=== PATIENT | male | born 1985 | race African-American/Black ===

== ENCOUNTER 2021-03-28 13:09 | Emergency (ER) | payer OTHER ==
[~2021-03-28] VITALS: Ht 180.3 cm; Wt 136.1 kg
[2021-03-28] MEDS ORDERED: KETOROLAC 30MG/ML VIAL IV STA (14:08)
[2021-03-28] MEDS ORDERED: CLINDAMYCIN HCL 150MG CAPSULE PO ONE (14:15)
[2021-03-28] MEDS ORDERED: PREDNISONE 20MG TABLET PO ONE (14:15)
[2021-03-28] MEDS ORDERED: SODIUM CHLORIDE 0.9% 1,000 ML IV ONE (14:15)
[2021-03-28 14:19] VITALS: BP 166/94
[2021-03-28] MEDS ORDERED: LIDOCAINE HCL/PF 1% 10 MG/ML 5ML VIAL INFIL ONE (15:30)
[2021-03-28] MEDS ORDERED: IBUP-2030 MT (15:45)
[2021-03-28] MEDS ORDERED: CLIN300C12 MT (15:45)
== END 2021-03-28 16:00 | disposition home or self-care (01) ==
LOC: ER 13:30
DX: J36 Peritonsillar abscess (principal); E11.9 Type 2 diabetes mellitus without complications
CPT/HCPCS: 96361; 96374; 99283; J1885; J3490; J7030; J7512; Z7610

== ENCOUNTER 2022-08-09 12:52 | Inpatient (IN) | payer OTHER ==
[~2022-08-09] VITALS: Ht 175.3 cm; Wt 136.1 kg
[~2022-08-09 12:52] MED LIST: CLIN-194 MT; IBUP-2030 MT
[2022-08-09 18:25] LABS: CHLORIDE 103 mEq/L (98-107)
[2022-08-09 18:26] LABS: BASOPHILS % 0.7 % (0.0-2.0); EOSINOPHILS % 0.9 % (0.0-5.0); HEMATOCRIT. 49.2 % (42.0-52.0); HEMOGLOBIN. 16.9 g/dL (14.0-18.0); LYMPHOCYTES % 30.9 % (20.0-50.0); MEAN CORPUSCULAR HEMOGLOBIN 31.4 pg (28.0-32.0); MEAN CORPUSCULAR VOLUME 91.4 fL (80.0-94.0); MEAN PLATELET VOLUME 7.6 fl (7.4-10.4); MONOCYTES % 11.6 % (2.0-8.0); NEUTROPHILS % 55.9 % (40.0-76.0); PLATELET 309 x1000/uL (130-400); RED BLOOD CELL COUNT 5.38 mill/uL (4.7-6.1); RED CELL DISTRIBUTION WIDTH 13.1 % (11.6-14.6)
[2022-08-09] MEDS ORDERED: ACETAMINOPHEN 325MG TABLET PO ONE (19:30)
[2022-08-09] MEDS ORDERED: ONDANSETRON HCL 4MG TABLET PO ONE (19:30)
[2022-08-09] MEDS ORDERED: ASPIRIN 325MG EC TABLET PO ONE (19:30)
[2022-08-09] MEDS ORDERED: MORPHINE SULFATE 4 MG/ML CPJ (NOT FOR IM USE) IV ONE (21:00)
[2022-08-09] MEDS ORDERED: ENOXAPARIN 150MG/ML SYR SUBCUT ONE (21:30)
[2022-08-09] MEDS ORDERED: IOHEXOL-350 100 ML BOTTLE ONE (23:12)
[2022-08-09] MEDS ORDERED: ENOXAPARIN 150MG/ML SYR SUBCUT NR (23:15)
[2022-08-09] MEDS ORDERED: CEFTRIAXONE 1 G PREMIX 50 ML IV ONE (23:45)
[2022-08-09] MEDS ORDERED: AZITHROMYCIN 500MG/250ML 250 ML IV ONE (23:45)
[2022-08-10 09:54] VITALS: BP 139/86
[2022-08-10 10:00] VITALS: BP 130/86
[2022-08-10] MEDS ORDERED: DEXTROSE 50% WATER 50ML SYRINGE IV PRN (10:45)
[2022-08-10] MEDS ORDERED: IPRATROPIUM/ALBUTEROL 0.5-3(2.5)MG/3ML NEB HHN PRN (10:45)
[2022-08-10] MEDS ORDERED: GUAIFENESIN-DM 200MG-20MG/10ML UDC PO PRN (10:45)
[2022-08-10] MEDS ORDERED: ALBUTEROL (0.083%) 2.5MG/3ML NEB HHN PRN (10:45)
[2022-08-10] MEDS ORDERED: IPRATROPIUM BROMIDE (0.02%) 0.5MG/2.5ML NEB HHN PRN (10:45)
[2022-08-10] MEDS ORDERED: ACETAMINOPHEN 325MG TABLET PO PRN (10:45)
[2022-08-10] MEDS ORDERED: ONDANSETRON HCL 4MG/2ML INJ IV PRN (10:45)
[2022-08-10] MEDS ORDERED: BLOOD SUGAR DIAGNOSTIC STRIP TEST SCH (11:40)
[2022-08-10] MEDS ORDERED: INSULIN LISPRO 100 UNITS/ML SUBCUT SCH (12:10)
[2022-08-10] MEDS ORDERED: LEVO750T68 MT (13:43)
[2022-08-10 14:02] VITALS: BP 121/70
[2022-08-10 18:14] LABS: *AMPHETAMINES SCREEN URINE NEGATIVE (NEGATIVE); *BARBITURATES SCREEN URINE NEGATIVE (NEGATIVE); *BENZODIAZEPINES SCREEN URINE NEGATIVE (NEGATIVE); *COCAINE SCREEN URINE NEGATIVE (NEGATIVE); CANNABINOID URINE SCREEN PRESUMTIVE POSITIVE (NEGATIVE); METHADONE URINE SCREEN NEGATIVE (NEGATIVE); OPIATES URINE SCREEN PRESUMTIVE POSITIVE (NEGATIVE); PHENCYCLIDINE URINE SCREEN NEGATIVE (NEGATIVE)
[2022-08-10] MEDS ORDERED: CEFTRIAXONE 1,000 MG in DEXTROSE 5% WATER 50 ML IV SCH (22:00)
[2022-08-11] MEDS ORDERED: AZITHROMYCIN 250 MG TABLET PO SCH (09:00)
== END 2022-08-10 16:20 | disposition home or self-care (01) | DRG 190 ==
LOC: ER 12:52 → 7EST 23:15
PROVIDERS: ADMIT Internal Medicine; ATTEND Internal Medicine
DX: I24.8 Other forms of acute ischemic heart disease (principal); I21.A1 Myocardial infarction type 2; J18.9 Pneumonia, unspecified organism; E11.9 Type 2 diabetes mellitus without complications; I10 Essential (primary) hypertension; Z20.822 Contact with and (suspected) exposure to COVID-19; E66.01 Morbid (severe) obesity due to excess calories; Z68.41 Body mass index [BMI] 40.0-44.9, adult; Z79.4 Long term (current) use of insulin
CPT/HCPCS: 36415; 71045; 71275; 74174; 80053; 80305; 82962; 84484; 85025; 87426; 93005; 99285; J0456; J0696; J1650; J1815; J2270; J7060; Q0162; Q9967

== ENCOUNTER 2023-06-14 13:33 | Inpatient (IN) | payer OTHER ==
[~2023-06-14] VITALS: Ht 175.3 cm; Wt 146.1 kg
[~2023-06-14 13:33] MED LIST changes: -CLIN-194 MT; +LEVO750T68 MT
[2023-06-14 17:08] LABS: BASOPHILS % 0.4 % (0.0-2.0); EOSINOPHILS % 0.3 % (0.0-5.0); HEMATOCRIT. 48.3 % (42.0-52.0); HEMOGLOBIN. 15.9 g/dL (14.0-18.0); LYMPHOCYTES % 14.1 % (20.0-50.0); MEAN CORPUSCULAR HEMOGLOBIN 30.5 pg (28.0-32.0); MEAN CORPUSCULAR HGB CONC 32.9 g/dL (31.0-37.0); MEAN CORPUSCULAR VOLUME 92.9 fL (80.0-94.0); MEAN PLATELET VOLUME 7.8 fl (7.4-10.4); MONOCYTES % 7.8 % (2.0-8.0); NEUTROPHILS % 77.4 % (40.0-76.0); PLATELET 287 x1000/uL (130-400); WHITE BLOOD COUNT 19.6 x1000/uL (4.5-11.0)
[2023-06-14 17:26] LABS: ALANINE AMINOTRANSFERASE 23 IU/L (10-49); ASPARTATE AMINOTRANSFERASE 12 IU/L (<34); BILIRUBIN TOTAL 1.7 mg/dL (0.1-1.0); CALCIUM 10.6 mg/dL (8.7-10.4); CARBON DIOXIDE 29 mEq/L (21-32); CHLORIDE 103 mEq/L (98-107); CREATININE 1.1 mg/dL (0.6-1.3); GLUCOSE 88 mg/dL (70-105); POTASSIUM 4.1 mEq/L (3.5-5.1); PROTEIN TOTAL 8.8 g/dL (6.0-8.3); SODIUM 140 mEq/L (136-145); UREA NITROGEN BLOOD 10 mg/dL (9-23)
[2023-06-14 17:36] LABS: TROPONIN I HIGH SENSITIVITY 102 ng/L (3.0-53)
[2023-06-14 20:23] LABS: CLARITY URINE CLOUDY (CLEAR); COLOR URINE YELLOW (YELLOW); PROTEIN URINE 2+ (NEGATIVE); SPECIFIC GRAVITY URINE >=1.030 (1.005-1.030)
[2023-06-14 20:24] LABS: GLUCOSE URINE NEGATIVE (NEGATIVE); KETONES URINE TRACE (NEGATIVE); LEUKOCYTE ESTERASE URINE TRACE (NEGATIVE); NITRITE URINE NEGATIVE (NEGATIVE); OCCULT BLOOD URINE 1+ (NEGATIVE); UROBILINOGEN URINE 0.2 E.U./dL (0.2-1.0)
[2023-06-14 20:30] LABS: BACTERIA URINE 2+; SQUAMOUS EPITHELIAL CELL URINE 2+ /lpf (RARE/1+)
[2023-06-14 20:31] LABS: WBC URINE 15-25 /hpf (0-2)
[2023-06-14] MEDS ORDERED: ONDANSETRON HCL 4MG/2ML INJ IV ONE (21:15)
[2023-06-14] MEDS ORDERED: LACTATED RINGERS IV SCH (21:15)
[2023-06-14] MEDS ORDERED: CEFTRIAXONE 1GM PREMIX 50 ML IV ONE (21:15)
[2023-06-14 21:27] LABS: TROPONIN I HIGH SENSITIVITY 100 ng/L (3.0-53)
[2023-06-14] MEDS ORDERED: ONDANSETRON HCL 4MG/2ML INJ IV SCH (21:30)
[2023-06-14] MEDS ORDERED: CEFTRIAXONE 1GM PREMIX 50 ML IV NR (23:45)
[2023-06-14] MEDS ORDERED: ONDANSETRON HCL 4MG/2ML INJ IV NR (23:45)
[2023-06-14 23:50] VITALS: BP_SYST 144; BP_DIAS 78; BP_DIAS 79; PULSE 86; RESP 19; TEMP 97.8
[2023-06-15] MEDS ORDERED: ONDANSETRON HCL 4MG/2ML INJ IV PRN (01:15)
[2023-06-15] MEDS ORDERED: ACETAMINOPHEN 325MG TABLET PO PRN (01:15)
[2023-06-15] MEDS ORDERED: DEXTROSE 50% WATER 50ML SYRINGE IV PRN (01:15)
[2023-06-15 04:00] VITALS: BP 172/103; PULSE 86; RESP 19; TEMP 96.6
[2023-06-15] MEDS: CLONIDINE 0.1MG TABLET PO PRN ×2 (05:35→11:40)
[2023-06-15] MEDS: BLOOD SUGAR DIAGNOSTIC STRIP TEST SCH ×4 (07:40→21:18)
[2023-06-15 08:00] VITALS: BP 170/100; PULSE 80; RESP 18; TEMP 96.5
[2023-06-15] MEDS: INSULIN LISPRO 100 UNITS/ML SUBCUT SCH ×4 (08:10→21:23)
[2023-06-15] MEDS: AMLODIPINE 10MG TABLET PO SCH (08:13)
[2023-06-15] MEDS: HYDROCODONE/ACETAMINOPHEN 5/325MG TABLET PO PRN ×2 (11:05→17:13)
[2023-06-15 12:00] VITALS: BP 161/92; PULSE 73; RESP 18; TEMP 97.4
[2023-06-15] MEDS ORDERED: CEFTRIAXONE 1GM PREMIX 50 ML IV SCH (14:30)
[2023-06-15] MEDS ORDERED: HYDRALAZINE HCL 50MG TABLET PO NR (15:00)
[2023-06-15 16:00] VITALS: BP 121/67; PULSE 92; RESP 19; TEMP 96.6
[2023-06-15] MEDS: TAMSULOSIN HCL 0.4MG SR CAPSULE PO SCH (17:03)
[2023-06-15 20:00] VITALS: BP 122/63; PULSE 102; RESP 18; TEMP 97.8
[2023-06-15] MEDS ORDERED: CEFTRIAXONE 1,000 MG in DEXTROSE 5% WATER 50 ML IV SCH (21:00)
[2023-06-15] MEDS: HYDRALAZINE HCL 50MG TABLET PO SCH (21:17)
[2023-06-16] VITALS: BP 122/63; PULSE 102; RESP 18; TEMP 97.8
[2023-06-16 00:14] LABS: BASOPHILS % 0.2 % (0.0-2.0); EOSINOPHILS % 0.5 % (0.0-5.0); HEMATOCRIT. 43.7 % (42.0-52.0); HEMOGLOBIN. 14.5 g/dL (14.0-18.0); LYMPHOCYTES % 20.9 % (20.0-50.0); MEAN CORPUSCULAR HEMOGLOBIN 30.3 pg (28.0-32.0); MEAN CORPUSCULAR VOLUME 91.9 fL (80.0-94.0); MEAN PLATELET VOLUME 7.8 fl (7.4-10.4); MONOCYTES % 12.2 % (2.0-8.0); NEUTROPHILS % 66.2 % (40.0-76.0); PLATELET 290 x1000/uL (130-400); RED BLOOD CELL COUNT 4.76 mill/uL (4.7-6.1); RED CELL DISTRIBUTION WIDTH 13.7 % (11.6-14.6); WHITE BLOOD COUNT 13.2 x1000/uL (4.5-11.0)
[2023-06-16 00:28] LABS: CALCIUM 9.5 mg/dL (8.7-10.4); CARBON DIOXIDE 31 mEq/L (21-32); CHLORIDE 98 mEq/L (98-107); CREATININE 0.9 mg/dL (0.6-1.3); GLUCOSE 144 mg/dL (70-105); POTASSIUM 3.3 mEq/L (3.5-5.1); SODIUM 137 mEq/L (136-145); UREA NITROGEN BLOOD 10 mg/dL (9-23)
[2023-06-16 04:00] VITALS: BP_SYST 130; BP_SYST 133; BP_DIAS 74; BP_DIAS 75; PULSE 103; PULSE 98; RESP 17; RESP 18; TEMP 96.9; TEMP 97.3
[2023-06-16] MEDS: BLOOD SUGAR DIAGNOSTIC STRIP TEST SCH ×2 (07:40→12:40)
[2023-06-16 08:25] VITALS: BP 130/80; PULSE 65; RESP 20; TEMP 98.1
[2023-06-16] MEDS: HYDRALAZINE HCL 50MG TABLET PO SCH (09:00)
[2023-06-16] MEDS: TAMSULOSIN HCL 0.4MG SR CAPSULE PO SCH (09:03)
[2023-06-16] MEDS: AMLODIPINE 10MG TABLET PO SCH (09:04)
[2023-06-16] MEDS: INSULIN LISPRO 100 UNITS/ML SUBCUT SCH ×2 (09:05→13:10)
[2023-06-16] MEDS ORDERED: AMLO10TA80 MT (10:52)
[2023-06-16] MEDS ORDERED: HYDR-4135 MT (10:52)
[2023-06-16] MEDS ORDERED: TAMS-11 MT (10:52)
[2023-06-16] MEDS ORDERED: LEVO-65 MT (10:52)
[2023-06-16 11:46] VITALS: BP 106/73; PULSE 73; RESP 20; TEMP 97.9
[2023-06-16 12:51] VITALS: BP 145/97; PULSE 97; TEMP 98; O2SAT 97
== END 2023-06-16 13:20 | disposition home or self-care (01) | DRG 199 ==
LOC: ER 13:33 → MICUSO 22:27 → EDBEDREQ 22:30 → 7WST 23:52
PROVIDERS: ADMIT Internal Medicine; ATTEND Internal Medicine
DX: I16.0 Hypertensive urgency (principal); N39.0 Urinary tract infection, site not specified; E11.9 Type 2 diabetes mellitus without complications; E66.01 Morbid (severe) obesity due to excess calories; B96.20 Unspecified Escherichia coli [E. coli] as the cause of diseases classified elsewhere; N40.0 Benign prostatic hyperplasia without lower urinary tract symptoms; I10 Essential (primary) hypertension; Z68.42 Body mass index [BMI] 45.0-49.9, adult; Z79.899 Other long term (current) drug therapy; Z71.6 Tobacco abuse counseling
CPT/HCPCS: 36415; 71045; 80048; 80053; 81003; 82962; 83036; 83605; 84484; 85025; 87077; 87186; 93005; 99291; J0696; J1815; J2405; J7060